=== PATIENT | male | born 1980 | race African-American/Black ===

== ENCOUNTER 2021-12-25 13:59 | Emergency (ER) | payer SELFPAY ==
[~2021-12-25] VITALS: Ht 175.3 cm; Wt 61.2 kg
[2021-12-25] MEDS ORDERED: ASPIRIN 81 MG CHEW TAB PO STA (16:02)
[2021-12-25] MEDS ORDERED: ASPIRIN 81 MG CHEW TAB ONE (16:11)
== END 2021-12-25 16:14 | disposition other institution (70) ==
LOC: FSED 14:27
DX: R53.1 Weakness (principal); I63.9 Cerebral infarction, unspecified; I10 Essential (primary) hypertension; E78.5 Hyperlipidemia, unspecified; Z91.14 Patient's other noncompliance with medication regimen
CPT/HCPCS: 70450; 80053; 82553; 84484; 85025; 93005; 99284